=== PATIENT | male | born 1940 | race Caucasian/White ===

== ENCOUNTER 2021-06-06 07:41 | Day surgery (SDC) | payer MEDICARE ==
[2021-05-31 15:11] VITALS: BMI 32.7
[2021-06-06] MEDS ORDERED: Lidocaine 1% MPF 2 ML VIAL ONE (08:02)
[2021-06-06] MEDS ORDERED: PROPOFOL 20 ML ONE (09:22)
== END 2021-06-06 10:30 | disposition home or self-care (01) ==
LOC: CSHSDC 07:41
PROVIDERS: ATTEND Otolaryngology Otolaryngic Allergy
DX: G47.33 Obstructive sleep apnea (adult) (pediatric) (principal); I10 Essential (primary) hypertension; E66.9 Obesity, unspecified; J84.10 Pulmonary fibrosis, unspecified; E83.119 Hemochromatosis, unspecified; Z95.0 Presence of cardiac pacemaker; Z79.899 Other long term (current) drug therapy; Z88.2 Allergy status to sulfonamides; Z68.32 Body mass index [BMI] 32.0-32.9, adult
CPT/HCPCS: J2704

== ENCOUNTER 2021-07-11 08:06 | Day surgery (SDC) | payer MEDICARE ==
[2021-07-06 14:20] VITALS: BMI 32.1
[~2021-07-11 08:06] MED LIST: Propofol 1,000 MG/100 ML VIAL IV ONE
[2021-07-11] MEDS ORDERED: Lidocaine 1% MPF 2 ML VIAL ONE (08:26)
[2021-07-11] MEDS ORDERED: CEFAZOLIN 1 GM VIAL ONE (09:33)
[2021-07-11] MEDS ORDERED: Lidocaine 1% w/Epinephrine 1:100K 20 ML VIAL ONE ×2 (09:33→09:34)
[2021-07-11] MEDS ORDERED: EPINEPHrine 1 MG/ML AMP ONE (10:16)
[2021-07-11] MEDS ORDERED: Ondansetron PF 4 MG/2 ML Vial ONE (10:21)
[2021-07-11] MEDS ORDERED: Lidocaine 1% PF 5 ML VIAL ONE (10:21)
[2021-07-11] MEDS ORDERED: Rocuronium Bromide 10 MG/ML (10ML VIAL) ONE (10:21)
[2021-07-11] MEDS ORDERED: Dexamethasone 20 MG/5 ML VIAL ONE (10:21)
[2021-07-11] MEDS ORDERED: Midazolam HCl 2 mg/2 ml Vial ONE (10:21)
[2021-07-11] MEDS ORDERED: PROPOFOL 20 ML ONE (10:21)
[2021-07-11] MEDS ORDERED: Fentanyl 250 MCG/5 ML VIAL ONE (10:21)
[2021-07-11] MEDS ORDERED: Acetaminophen/Codeine 30-300mg Tablet ONE (14:24)
== END 2021-07-11 14:55 | disposition home or self-care (01) ==
LOC: CSHSDC 08:06
PROVIDERS: ATTEND Otolaryngology Otolaryngic Allergy
DX: G47.33 Obstructive sleep apnea (adult) (pediatric) (principal); Z79.899 Other long term (current) drug therapy; I10 Essential (primary) hypertension; Z86.718 Personal history of other venous thrombosis and embolism
CPT/HCPCS: 93005; 93010; C1820; C1898; J0171; J0690; J1100; J2250; J2405; J2704; J3010